=== PATIENT | female | born 1940 | race Two or more races ===

== ENCOUNTER → 2017-03-16 07:39 | Outpatient (CLI) | payer OTHER ==
[~2017-03-16 07:39] MED LIST: BENTYL10 MG/ML IM; CYMBALTA30 MG PO; FLAGYL375 MG PO; HYZAAR 100/25 T1 TAB PO; METAGLIP PO; NEURONTIN800 MG PO; NOVOLOG100 U/ML SQ; ZANTAC150 M2 PO
== END | disposition home or self-care (01) ==
LOC: LAB 07:39
DX: I10 Essential (primary) hypertension (principal); E11.9 Type 2 diabetes mellitus without complications; E03.8 Other specified hypothyroidism; E78.2 Mixed hyperlipidemia; K92.1 Melena; D64.0 Hereditary sideroblastic anemia

== ENCOUNTER 2017-03-17 10:51 | Outpatient (CLI) | payer OTHER | END 2017-03-17 13:23 | disposition home or self-care (01) | LOC: LAB 10:51 | DX: I10 Essential (primary) hypertension (principal); E11.9 Type 2 diabetes mellitus without complications; E03.8 Other specified hypothyroidism; E78.2 Mixed hyperlipidemia; K92.1 Melena; D64.0 Hereditary sideroblastic anemia ==

== ENCOUNTER 2017-07-26 07:39 | Outpatient (CLI) | payer OTHER | END 2017-07-26 07:56 | disposition home or self-care (01) | LOC: LAB 07:39 | DX: I10 Essential (primary) hypertension (principal); E11.9 Type 2 diabetes mellitus without complications; E03.8 Other specified hypothyroidism; E78.2 Mixed hyperlipidemia ==

== ENCOUNTER 2017-12-21 10:01 | Inpatient (IN) | payer OTHER ==
[~2017-12-21] VITALS: Ht 147.3 cm; Wt 44.5 kg
[2017-12-21] MEDS ORDERED: HUMULIN N100 UNIT/2 (10:11)
[2017-12-21] MEDS ORDERED: FAMOTIDINE10 MG (10:11)
[2017-12-21] MEDS ORDERED: TRAZODONE HCL50 MG PO (10:12)
== END 2017-12-25 09:35 | disposition home or self-care (01) | DRG 637 ==
LOC: ER 10:01 → SURG 12-22 09:42 → SEC-K 12-22 09:42 → SURG 12-22 20:09
DX: E11.649 Type 2 diabetes mellitus with hypoglycemia without coma (principal); G93.41 Metabolic encephalopathy; F02.81 Dementia in other diseases classified elsewhere, unspecified severity, with behavioral disturbance; K52.89 Other specified noninfective gastroenteritis and colitis; I10 Essential (primary) hypertension; G30.8 Other Alzheimer's disease

== ENCOUNTER 2018-07-16 07:48 | Outpatient (CLI) | payer OTHER ==
[~2018-07-16 07:48] MED LIST changes: +FAMOTIDINE10 MG; +HUMULIN N100 UNIT/2; +TRAZODONE HCL50 MG PO
== END 2018-07-16 08:47 | disposition home or self-care (01) ==
LOC: MAMO-SONO 07:48
DX: N63.11 Unspecified lump in the right breast, upper outer quadrant (principal); Z12.31 Encounter for screening mammogram for malignant neoplasm of breast; Z87.898 Personal history of other specified conditions

== ENCOUNTER 2019-03-10 08:35 | Outpatient (CLI) | payer OTHER | END 2019-03-10 14:59 | disposition home or self-care (01) | LOC: LAB 08:35 | DX: H25.011 Cortical age-related cataract, right eye (principal); Z98.41 Cataract extraction status, right eye; D68.8 Other specified coagulation defects ==

== ENCOUNTER 2021-09-22 06:51 | Outpatient (CLI) | payer OTHER | END 2021-09-22 06:56 | disposition home or self-care (01) | LOC: LAB 06:51 | PROVIDERS: ATTEND Internal Medicine Cardiovascular Disease | DX: I10 Essential (primary) hypertension (principal); Z20.828 Contact with and (suspected) exposure to other viral communicable diseases; E11.9 Type 2 diabetes mellitus without complications; E03.9 Hypothyroidism, unspecified ==

== ENCOUNTER 2021-09-22 11:40 | Outpatient (CLI) | payer OTHER | END 2021-09-22 11:44 | disposition home or self-care (01) | LOC: MAMO-SONO 11:40 | PROVIDERS: ATTEND Internal Medicine Cardiovascular Disease | DX: Z12.31 Encounter for screening mammogram for malignant neoplasm of breast (principal); N63.11 Unspecified lump in the right breast, upper outer quadrant ==

== ENCOUNTER 2021-12-08 07:33 | Outpatient (CLI) | payer OTHER | END 2021-12-08 07:47 | disposition home or self-care (01) | LOC: TOM 07:33 | PROVIDERS: ATTEND Internal Medicine Cardiovascular Disease | DX: R10.9 Unspecified abdominal pain (principal) ==

== ENCOUNTER 2022-02-22 17:30 | Inpatient (IN) | payer OTHER ==
[~2022-02-22] VITALS: Ht 152.4 cm; Wt 68.0 kg
--- NOTE | 2022-02-22 17:38 | NUR ---
SE RECIBE PACIENTE ALERTA Y ORIENTADA X3 QUIEN REFIERE QUE HY COMENZO CON DOLOR ABDOMINAL, SE MONITOREAN S/V Y SE UBICA PACIENTE
--- NOTE | 2022-02-22 18:20 | NUR ---
SE RECIBE PACIENTE EN AREA DE TRIAGE, PACIENTE NO SE ENCUENTRA ALERTA Y ORIENTADA, FAMILIAR REFIERE QUE LA DOUG POR DOLOR ABDOMINAL, SE OBSERVA PACIENTE CON RESPIRACIONES ABDOMINALES, SAT EN 88%, SE REALIZA EKG, SE OBSERVA PIES Y LYNN DE PACIENTE EDEMATOSO. SE UBICA PACIENTE EN UNIDAD DE CHEST PAIN, SE COLOCA EN MONITOR CARDIACO Y OXIMETRIA DE PULSO.
--- NOTE | 2022-02-22 20:15 | NUR ---
PATIENT IS PLACED IN BED WITH RAILINGS UP AND CONNECTED TO TELEMETRY AND OXIMETRY. NASAL CANULA AT 3LITERS IS PALCED ON PATIENT ALNG WITH GEIGER TO GRAVITY. IV LINE IS STARTED ON PATIENT'S WRIST AND LAB SAMPLES ARE TAKEN ACCORIDNGLY. LASIX IS ADMINSITERED ACCORINDGLY. PATIENT HAS PENDING MEDICAL REEVALUATION PENDING.
[2022-02-22] MEDS ORDERED: MEMANTINE HCL10 MG PO (22:16)
[2022-02-22] MEDS ORDERED: ALPRAZOLAM OD0.25 MG PO (22:16)
[2022-02-22] MEDS ORDERED: ESCITALOPRA5 MG/5 ML PO (22:17)
[2022-02-22] MEDS ORDERED: DOXAZOSIN MESYLA2 MG PO (22:17)
[2022-02-22] MEDS ORDERED: PEPCID AC20 MG PO (22:17)
[2022-02-22] MEDS ORDERED: COZAAR100 MG PO (22:17)
[2022-02-22] MEDS ORDERED: RISPERDAL3 MG PO (22:17)
== END 2022-03-28 07:29 | disposition expired | DRG 207 ==
LOC: ER 17:30 → SEC-K 22:21 → ICU-2 22:21 → MEDJ 02-23 02:37 → ICU-2 02-23 03:43 → ICU 02-27 20:38 → SURH 03-10 12:18
PROVIDERS: ADMIT Internal Medicine; ATTEND Internal Medicine
PROC: BW21ZZZ Computerized Tomography (CT Scan) of Abdomen and Pelvis (ICD-10-PCS; 2022-02-22)
PROC: B24BYZZ Ultrasonography of Heart with Aorta using Other Contrast (ICD-10-PCS; 2022-02-22)
PROC: 5A1955Z Respiratory Ventilation, Greater than 96 Consecutive Hours (ICD-10-PCS; principal; 2022-02-23)
PROC: 0BH17EZ Insertion of Endotracheal Airway into Trachea, Via Natural or Artificial Opening (ICD-10-PCS; 2022-02-23)
PROC: 0DH67UZ Insertion of Feeding Device into Stomach, Via Natural or Artificial Opening (ICD-10-PCS; 2022-02-23)
PROC: 3E0G76Z Introduction of Nutritional Substance into Upper GI, Via Natural or Artificial Opening (ICD-10-PCS; 2022-02-23)
PROC: 02HV33Z Insertion of Infusion Device into Superior Vena Cava, Percutaneous Approach (ICD-10-PCS; 2022-02-28)
PROC: 30243N1 Transfusion of Nonautologous Red Blood Cells into Central Vein, Percutaneous Approach (ICD-10-PCS; 2022-02-28)
PROC: 8E0ZXY6 Isolation (ICD-10-PCS; 2022-03-04)
PROC: 5A0935A Assistance with Respiratory Ventilation, Less than 24 Consecutive Hours, High Flow/Velocity Cannula (ICD-10-PCS; 2022-03-06)
PROC: 5A09357 Assistance with Respiratory Ventilation, Less than 24 Consecutive Hours, Continuous Positive Airway Pressure (ICD-10-PCS; 2022-03-06)
PROC: 4A12X4Z Monitoring of Cardiac Electrical Activity, External Approach (ICD-10-PCS; 2022-03-10)
DX: J69.0 Pneumonitis due to inhalation of food and vomit (principal); J96.01 Acute respiratory failure with hypoxia; A41.59 Other Gram-negative sepsis; T83.518A Infection and inflammatory reaction due to other urinary catheter, initial encounter; N39.0 Urinary tract infection, site not specified; R65.21 Severe sepsis with septic shock; I21.A1 Myocardial infarction type 2; F05 Delirium due to known physiological condition; N17.8 Other acute kidney failure; I50.32 Chronic diastolic (congestive) heart failure; F02.C18 Dementia in other diseases classified elsewhere, severe, with other behavioral disturbance; I11.0 Hypertensive heart disease with heart failure; G30.8 Other Alzheimer's disease; D63.8 Anemia in other chronic diseases classified elsewhere; D64.89 Other specified anemias; I05.2 Rheumatic mitral stenosis with insufficiency; L89.152 Pressure ulcer of sacral region, stage 2; L89.322 Pressure ulcer of left buttock, stage 2; L89.611 Pressure ulcer of right heel, stage 1; E11.65 Type 2 diabetes mellitus with hyperglycemia; L08.89 Other specified local infections of the skin and subcutaneous tissue; B95.7 Other staphylococcus as the cause of diseases classified elsewhere; B95.61 Methicillin susceptible Staphylococcus aureus infection as the cause of diseases classified elsewhere; B96.1 Klebsiella pneumoniae [K. pneumoniae] as the cause of diseases classified elsewhere; B95.2 Enterococcus as the cause of diseases classified elsewhere; B96.7 Clostridium perfringens [C. perfringens] as the cause of diseases classified elsewhere; Z66 Do not resuscitate; I46.8 Cardiac arrest due to other underlying condition; Z74.01 Bed confinement status; Z79.4 Long term (current) use of insulin